=== PATIENT | male | born 1955 | race American Indian/Alaskan Native ===

== ENCOUNTER 2018-01-16 09:36 | Day surgery (SDC) | payer SELFPAY ==
[2018-01-10 09:31] VITALS: BMI 24.9
[2018-01-16] MEDS ORDERED: Cyclopentolate 1% Opth (2 ml) OD SCH (09:45)
[2018-01-16] MEDS ORDERED: Lactated Ringer's 500 ML IV ONE ×2 (09:45→10:20)
[2018-01-16] MEDS ORDERED: Ciprofloxacin 0.3% OPTH SOLN OD SCH (09:45)
[2018-01-16] MEDS ORDERED: Tropicamide 1% Opht SOLUTION OD SCH (09:45)
[2018-01-16] MEDS ORDERED: Flurbiprofen 0.03% Opht SOLN OD SCH (09:45)
[2018-01-16] MEDS ORDERED: Phenylephrine 2.5% Opht Soln OD SCH (09:45)
[2018-01-16] MEDS ORDERED: Midazolam 2 MG/2 ML VIAL ONE (11:08)
[2018-01-16] MEDS ORDERED: Povidone Iodine Ophthalmic 5% Soln ONE (11:17)
[2018-01-16] MEDS ORDERED: Hyaluronidase Human, Recombi 150 U/ML VIAL ONE ×2 (11:17→11:29)
[2018-01-16] MEDS ORDERED: Tetracaine 0.5% Ophth (OR ONLY) ONE (11:17)
[2018-01-16] MEDS ORDERED: Chondroitin/Hyaluronate Opth Syringe KIT (0.55 ml-0.5 ml) IO ONE ×2 (11:17→11:20)
[2018-01-16] MEDS: Carbachol 0.01% IO ONE ×2 (11:33→11:39)
[2018-01-16] MEDS: Tobramycin/Dexamethasone OPHT OINT ONE ×2 (11:35→11:41)
[2018-01-16 11:59] VITALS: TEMP 98
[2018-01-16 12:22] VITALS: RESP 19
[2018-01-16 12:46] VITALS: BP 107/65; PULSE 83; O2SAT 98
--- NOTE | 2018-01-16 23:11 | OP ---
PROCEDURE DATE: 01/16/2018 PREOPERATIVE DIAGNOSIS: Hypermature cataract, right eye. POSTOPERATIVE DIAGNOSIS: Hypermature cataract, right eye. OPERATIVE PROCEDURE: Phacoemulsification, right eye with insertion of posterior chamber implant with utilization of vision blue capsular dye. SURGEON: Low Reagan MD ANESTHESIA: Local with IV sedation. PROCEDURE: The patient was brought into the operating room and placed in supine position, prepped and draped in the usual fashion for ophthalmic surgery. Lid speculum inserted, lids and exposing globe. On inspection, there was noted to be a hypermature cataract. A side-port incision was made superiorly and inferiorly with disposable sharp blade. An air bubble was injected in the anterior chamber followed by capsular dye to stain the anterior capsule. The dye was irrigated out of the anterior chamber with balanced salt solution. The anterior chamber was deepened with Viscoat. A near clear corneal incision was made temporally with a 2.75-mm keratome. Capsulorrhexis was performed with Utrata forceps. Hydrodissection was carried out with balanced salt solution. The nucleus was then phacoemulsified. Remaining cortical fragments were aspirated with a split irrigation and aspiration system. The capsular sac was filled with Provisc. Posterior chamber lens was injected into the sac and rotated into horizontal position. Provisc was aspirated out of the anterior chamber. Pupil was constricted with Miochol. The wound was hydrated with balanced salt solution and found to be watertight. Topical Timoptic, Betadine, TobraDex ointment, and pressure patch were applied. The patient tolerated the procedure well. Low Reagan MD
== END 2018-01-16 12:49 | disposition home or self-care (01) ==
LOC: C.SDS 09:36
PROVIDERS: ATTEND Ophthalmology
DX: H25.11 Age-related nuclear cataract, right eye (principal)
CPT/HCPCS: 66984; 82948; J2250; J3010; J3470; J7120; V2632

== ENCOUNTER → 2018-01-30 | Day surgery (SDC) | payer SELFPAY ==
[2018-01-10 09:30] VITALS: BMI 24.9
[~2018-01-30] MED LIST: Carbachol 0.01% IO ONE; Chondroitin/Hyaluronate Opth Syringe KIT (0.55 ml-0.5 ml) IO ONE; Ciprofloxacin 0.3% OPTH SOLN OS SCH; Cyclopentolate 1% Opth (2 ml) OS SCH; Flurbiprofen 0.03% Opht SOLN OS SCH; Hyaluronidase Human, Recombi 150 U/ML VIAL ONE; Lactated Ringer's 500 ML IV ONE; Lidocaine 2% MPF (5 ml) Inj ONE; Midazolam 2 MG/2 ML VIAL ONE; Phenylephrine 2.5% Opht Soln OS SCH; Povidone Iodine Ophthalmic 5% Soln ONE; Tetracaine 0.5% Ophth (OR ONLY) ONE; Tobramycin/Dexamethasone OPHT OINT ONE; Tropicamide 1% Opht SOLUTION OS SCH
[2018-01-30 13:09] VITALS: O2SAT 98
[2018-01-30 14:01] VITALS: BP 120/74; PULSE 78; RESP 20; TEMP 98
--- NOTE | 2018-01-30 16:09 | OP ---
PROCEDURE DATE: 01/30/2018 PREOPERATIVE DIAGNOSIS: Mature cataract, left eye. POSTOPERATIVE DIAGNOSIS: Mature cataract, left eye. OPERATIVE PROCEDURE: Phacoemulsification, left eye, insertion of posterior chamber lens implant. SURGEON: Low Reagan MD ANESTHESIA TYPE: Local intravenous sedation. PROCEDURE: The patient was brought into the operating room, placed in supine position, prepped and draped in the usual fashion for ophthalmic surgery. Lid speculum was inserted, lids and exposing globe. A side-port incision was made superiorly and inferiorly with a disposable sharp blade. Anterior chamber was filled with Viscoat. A near clear corneal incision was made temporally with a 2.75-mm keratome. Capsulorrhexis was then performed with Utrata forceps. Hydrodissection carried out with balanced salt solution. Nucleus was phacoemulsified. Remaining cortical fragments were removed with a split irrigation and aspiration system. The capsular sac was filled with Provisc. A posterior chamber lens was then injected into the capsular sac and rotated into horizontal position. Provisc was aspirated out of the anterior chamber. The pupil was constricted with Miochol. The wound was found to be watertight. Topical Betadine, Timoptic, and TobraDex ointment and pressure patch were applied. The patient tolerated the procedure well. Low Reagan MD
== END | disposition home or self-care (01) ==
LOC: C.SDS 11:04
PROVIDERS: ATTEND Ophthalmology
DX: H25.12 Age-related nuclear cataract, left eye (principal)
CPT/HCPCS: 66984; 82948; J2250; J3010; J3470